=== PATIENT | male | born 2000 | race Caucasian/White ===

== ENCOUNTER 2022-09-11 17:14 | Emergency (ER) | payer OTHER, BC, SELFPAY ==
--- NOTE | ~2022-09-11 | XR_ITS ---
EXAMINATION: XR thoracic spine 3V DATE: 09/11/2022 18:12 INDICATION: Upper back pain TECHNIQUE: AP, lateral and lateral swimmer's views of the thoracic spine were obtained. COMPARISON: None. FINDINGS: No fracture, dislocation, or subluxation. The vertebral body heights, alignment, and interv ertebral disc spaces are normal. The paravertebral soft tissues are unremarkable. There are 10 degree s of thoracic dextrocurvature. IMPRESSION: 1. No acute osseous abnormality. Reviewed, dictated and finalized at location F.
--- NOTE | ~2022-09-11 | CT_ITS ---
EXAMINATION: CT brain wo con INDICATION: Headache COMPARISON: None TECHNIQUE: Standard unenhanced head CT. The dose-length product (DLP) was 605.33 mGy-cm. The mA was a djusted according to patient size. Iterative reconstruction technique was employed. FINDINGS: There is no intracranial hemorrhage, acute infarction, or abnormal mass lesion. The ventric les are normal. There is no abnormal mass effect or midline shift. The ojeda-white matter differentiat ion is normal. The basal cisterns are patent. The orbits are normal. The paranasal sinuses, mastoids and calvarium are normal. IMPRESSION: 1. No acute intracranial abnormality. Reviewed, dictated and finalized at location F.
--- NOTE | ~2022-09-11 | XR_ITS ---
EXAMINATION: XR chest 2V DATE: 09/11/2022 18:13 INDICATION: Chest pain TECHNIQUE: PA and lateral views of the chest are obtained. COMPARISON: 08/13/2018 FINDINGS: The lungs are free of acute opacities. No pleural effusion or pneumothorax. The cardiomedia stinal silhouette is normal. There are 10 degrees thoracic dextrocurvature. IMPRESSION: 1. No acute cardiopulmonary abnormality. Reviewed, dictated and finalized at location F.
--- NOTE | ~2022-09-11 | CT_ITS ---
EXAMINATION: CT cervical spine wo con DATE: 09/11/2022 17:52 INDICATION: Neck pain TECHNIQUE: Computed tomography (CT) of the cervical spine was performed without intravenous contrast. The dose-length product (DLP) was 396.33 mGy-cm. Automated exposure control and iterative reconstruc tion technique were employed. COMPARISON: None FINDINGS: No fracture, dislocation, or subluxation. The vertebral body heights, alignment, and interv ertebral disc spaces are normal. The paravertebral soft tissues are unremarkable. The odontoid proces s is intact. IMPRESSION: 1. No acute osseous abnormality. Reviewed, dictated and finalized at location F.
[2022-09-11 17:16] VITALS: BP 120/65; PULSE 73; RESP 16; TEMP 36.4; O2SAT 100
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
[2022-09-11] MEDS: IBUPROFEN 600 MG TABLET PO (17:39)
== END 2022-09-11 19:20 | disposition home or self-care (01) ==
PROVIDERS: Emergency Provider Emergency Medicine
DX: S16.1XXA Strain of muscle, fascia and tendon at neck level, initial encounter (principal); S29.9XXA Unspecified injury of thorax, initial encounter; V43.52XA Car driver injured in collision with other type car in traffic accident, initial encounter
CPT/HCPCS: 70450; 71046; 72072; 72125; 99284; A9270

== ENCOUNTER 2022-11-12 09:00 | Outpatient (RCR) | payer BC, SELFPAY ==
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
--- NOTE | 2022-10-22 11:54 | PCPTNOTE ---
Patient called & cancelled scheduled appointment this date. Confirms he will be at his next appointment.
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
== END 2022-11-12 12:53 | disposition home or self-care (01) ==
LOC: ANHGOSHPT 09:00
PROVIDERS: Visit Provider Clinical Nurse Specialist
DX: M54.2 Cervicalgia (principal); V89.2XXA Person injured in unspecified motor-vehicle accident, traffic, initial encounter
CPT/HCPCS: 97014; 97110; 97112; 97140; 97161; G0283

== ENCOUNTER 2023-02-17 11:00 | Outpatient (RCR) | payer BC, SELFPAY ==
--- NOTE | 2022-11-24 09:23 | OPREHPOC ---
Outpatient Therapy Plan of Care This is a Multidisciplinary Plan of Care that may contain components documented by all disciplines (PT, OT, and ST.) PT Problem 1 PT Problem #1 Knowledge Deficit PT Goal 1 Goal Pt to be IND with issued HEP Target Visit 4 PT Problem 2 PT Problem #2 Pain PT Goal 1 Goal Pt to report low back pain no greater than 3/10 in the last week. Target Visit 4 PT Goal 2 Goal Pt to report 75% improvement in overall symptoms. Target Visit 4 PT Problem 3 PT Problem #3 Impaired Range of Motion PT Goal 1 Goal Pt to improve lumbar ROM to 75% of normal Target Visit 4 PT Goal 2 Goal Pt to improve hamstring length to -30 deg farzad Target Visit 4 PT Problem 4 PT Problem #4 Impaired Strength PT Goal 1 Goal Pt to improve hip abduction stretch to 4+/5 Target Visit 4 PT Goal 2 Goal Pt to be able to lift and carry 30lb without an increase in symptoms.
--- NOTE | 2022-11-24 09:23 | PTOPEVAL1 ---
Assessment and note entered by Shayne Calderon, PT, DPT Evaluation Information Assessment Status Evaluation Diagnosis lower back pain, frazad hollis pain, farzad plantar fascitis Onset 4 years Subjective Information Pt reports a 4 year history of farzad foot and knee pain. He reports a new onset of low back pain, about 6 months. He did prior therapy for this without much relief. Pt states sitting, standing, or laying flat for an extended period of time all increase his back pain. He report he can stand for 1 hour prior to needing to sit down. He states at this time he is limited by his back and not his feet nor knees. Reported Pain Level Pain Score 3: Self Report Assessment PT Clinical Summary Savage presents to therapy today for his initial evaluation with a diagnosis of farzad knee pain, dorsalgia, and farzad plantar fascitis. Today he demonstrates decreased active spinal mobility in all planes, decreased passive hip ROM and decreased hip strength all likely playing a roll into his low back pain. He demonstrates decreased ankle dorsiflexion as well as a shortened plantar fascia. Skilled therapy services are indicated to improve mobility, improve strength, improve body mechanics, and to return to PLOF without limitations d/t pain. Plan of Care Interventions Electrical Stimulation,Gait Training,Hot Pack/Cold Pack,Manual Therapy,Neuro Re-education,Patient/ Caregiver Educati,Therapeutic Activities, Therapeutic Exercise PT Services Indicated Yes Treatment Frequency and 1x/wk for 4 wks Duration These treatments will address the objective and functional deficits as defined above. The patient will be advanced safely and appropriately in order for the patient to progress towards his/her prior level of function. Additional exercises will be introduced and as well as a comprehensive home exercise program upon discharge, if needed, ?to ensure carryover of functional gains achieved in the clinic. This treatment plan has been reviewed and agreement upon by the patient.
--- NOTE | 2022-12-02 14:14 | PCPTNOTE ---
On 12/02/22, the student Ladonna Aguilera, provided care and completed [facility] documentation on this patient. I have reviewed the student's documentation and agree with the findings.
--- NOTE | 2022-12-23 10:10 | PTOPPROG ---
Assessment and note entered by Shayne Calderon, PT, DPT Evaluation Information Assessment Status Progress Diagnosis lower back pain, farzad hollis pain, farzad plantar fascitis Onset 4 years Subjective Information Pt states overall he feels about the same as when he started therapy. He reports good compliance with his HEP. He states he gets a little bit of relief in the moment when completing therapy but does not see any improvement with day to day tasks . Assessment PT Clinical Summary Savage presents to therapy today for his progress report following 4 visits of skilled therapy with a diagnosis of farzad knee pain, dorsalgia, and farzad plantar fascitis. Today he demonstrates mild improvements in his hamstring length, no improvement in ankle motion, and minor improvements in passive hip ROM on the R. He was educated on shot inserts to assist with foot and ankle alignment in standing. Continuation of skilled therapy services are indicated to continue to progress towards therapy goals, to manage pain , and to return to PLOF without limitations. Plan of Care Interventions Electrical Stimulation,Gait Training,Hot Pack/Cold Pack,Manual Therapy,Neuro Re-education,Patient/ Caregiver Educati,Therapeutic Activities, Therapeutic Exercise PT Services Indicated Yes Treatment Frequency and 1x/wk for 4 wks Duration These treatments will address the objective and functional deficits as defined above. The patient will be advanced safely and appropriately in order for the patient to progress towards his/her prior level of function. Additional exercises will be introduced and as well as a comprehensive home exercise program upon discharge, if needed, ?to ensure carryover of functional gains achieved in the clinic. This treatment plan has been reviewed and agreement upon by the patient.
--- NOTE | 2023-01-07 09:52 | PCPTNOTE ---
Patient called to cancel but did not explain why.
--- NOTE | 2023-01-21 10:45 | PTOPPROG ---
Assessment and note entered by Shayne Calderon, PT, DPT Evaluation Information Assessment Status Progress Diagnosis lower back pain, farzad hollis pain, farzad plantar fascitis Onset 4 years Subjective Information Pt states things are about the same as last assessment. He states at times he has a little less heel pain. He states his back pain has remained unchanged. He reports good compliance with his HEP. Assessment PT Clinical Summary Savage presents to therapy today for his progress report following 7 visits of skilled therapy with a diagnosis of farzad knee pain, dorsalgia, and farzad plantar fascitis. He continues to report good compliance with his HEP. Today he demonstrates improved ankle ROM to nearing WNL, improved hip strength to grossly 4/5, and improve standing posture. He continues to have pain at rest in his low back and feet farzad. Continuation of skilled therapy services are indicated to continue to progress towards therapy goals, to manage pain, and to return to PLOF without limitations. Plan of Care Interventions Electrical Stimulation,Gait Training,Hot Pack/Cold Pack,Manual Therapy,Neuro Re-education,Patient/ Caregiver Educati,Therapeutic Activities, Therapeutic Exercise PT Services Indicated Yes Treatment Frequency and 1x/wk for 4 wks Duration These treatments will address the objective and functional deficits as defined above. The patient will be advanced safely and appropriately in order for the patient to progress towards his/her prior level of function. Additional exercises will be introduced and as well as a comprehensive home exercise program upon discharge, if needed, ?to ensure carryover of functional gains achieved in the clinic. This treatment plan has been reviewed and agreement upon by the patient.
--- NOTE | 2023-02-04 09:46 | PCPTNOTE ---
Patient reports he has to cancel due to conflicting appointments.
--- NOTE | 2023-02-17 11:55 | PTOPDC ---
Assessment and note entered by Shayne Calderon, PT, DPT Evaluation Information Assessment Status Discharge Diagnosis lower back pain, farzad hollis pain, farzad plantar fascitis Onset 4 years Subjective Information Pt states his back is more sore today than usually He states his back is pretty consistent and is usually a 5/10. He states his feet average a 4/10. He thinks he has made a little progress in therapy but states it is really slow, 15% overall improvement. Reported Pain Level Pain Score 4,7: Self Report Assessment PT Clinical Summary Savage presents to therapy today for his progress report following 10 visits of skilled therapy with a diagnosis of farzad knee pain, dorsalgia, and farzad plantar fascitis. He continues to report good compliance with his HEP but demonstrates minimal functional improvement. It was decided that he be discharged at this time with instructions to continue his HEP.
== END 2023-02-22 23:59 | disposition home or self-care (01) ==
LOC: ANHGOSHPT 11:00
PROVIDERS: PCP Internal Medicine; Visit Provider Clinical Nurse Specialist
DX: M54.9 Dorsalgia, unspecified (principal); M72.2 Plantar fascial fibromatosis; M25.569 Pain in unspecified knee
CPT/HCPCS: 97110; 97112; 97116; 97140; 97161; 97530

== ENCOUNTER → 2023-04-16 11:06 | Outpatient (CLI) | payer BC, SELFPAY ==
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
== END ==
PROVIDERS: PCP Clinical Nurse Specialist; Visit Provider Clinical Nurse Specialist
DX: M54.50 Low back pain, unspecified (principal)
CPT/HCPCS: 72100

== ENCOUNTER → 2023-04-27 15:39 | Outpatient (CLI) | payer BC, SELFPAY ==
--- NOTE | ~2023-04-27 | MR_ITS ---
EXAMINATION: MR lumbar spine wo con DATE: 04/27/2023 16:09 INDICATION: Low back pain, unspecified. TECHNIQUE: Magnetic resonance imaging (MRI) of the lumbar spine was performed without intravenous con trast. Sequences included sagittal T2-weighted FSE, sagittal T2-weighted FS FSE, sagittal T1-weighted FSE, and axial T2-weighted FSE. COMPARISON: Lumbar spine radiograph 04/16/2023 FINDINGS: Bone alignment is normal. There is mild chronic anterior wedging of T12 and L1 vertebral yanna dies, likely physiologic. Intervertebral disc heights are normal. The distal spinal cord signal inten sity is normal. The conus medullaris is at T12. The following disc levels are specifically discussed: L1-L2: The disc does not extend beyond the endplate margin. There is mild left facet joint osteoarthr itis. There is no neural foraminal stenosis. There is no central canal stenosis. L2-L3: The disc does not extend beyond the endplate margin. There is mild bilateral facet joint osteo arthritis. There is no neural foraminal stenosis. There is no central canal stenosis. L3-L4: The disc does not extend beyond the endplate margin. There is moderate bilateral facet joint o steoarthritis. There is no neural foraminal stenosis. There is no central canal stenosis. L4-L5: The disc is mildly bulging. There is moderate bilateral facet joint osteoarthritis. There is m ild bilateral neural foraminal stenosis. There is no central canal stenosis. L5-S1: The disc does not extend beyond the endplate margin. There is mild bilateral facet joint osteo arthritis. There is no neural foraminal stenosis. There is no central canal stenosis. IMPRESSION: 1. Mild lumbar spondylosis. Reviewed, dictated and finalized at location A. TRY SCIENTIST IMPRESSION: 1. Mild lumbar spondylosis.
== END ==
PROVIDERS: PCP Internal Medicine; Visit Provider Nurse Practitioner
DX: M47.896 Other spondylosis, lumbar region (principal)
CPT/HCPCS: 72148

== ENCOUNTER 2024-12-09 08:59 | Outpatient (CLI) | payer BC, SELFPAY ==
[2024-12-09 18:06] LABS: Basophils Absolute Auto 0.1 K/mm3 (0.0-0.1); Basophils Percent Auto 0.6 % (0.2-1.2); Eosinophils Absolute Auto 0.2 K/mm3 (0-0.3); Eosinophils Percent Auto 1.2 % (0-4.4); Hematocrit 47.8 % (42.0-52.0); Hemoglobin 15.1 g/dL (14.0-18.0); Immature Granulocyte Absolute 0.04 K/mm3 (0.00-0.031); Immature Granulocyte Percent A 0.3 % (0-0.5); Lymphocytes Absolute Auto 2.68 K/mm3 (0.9-3.2); Lymphocytes Percent Auto 21.6 % (18.3-44.2); Mean Corpuscular HGB Conc 31.6 g/dl (32-36); Mean Corpuscular Hemoglobin 29.1 pg (26-34); Mean Corpuscular Volume 92.1 fl (80-100); Monocytes Absolute Auto 1.1 K/mm3 (0.1-0.6); Monocytes Percent Auto 8.9 % (2.6-8.5); Neutrophils Absolute Auto 8.4 K/mm3 (1.3-6.7); Neutrophils Percent Auto 67.4 % (45.5-73.1); Platelet Count Result 348 k/mm3 (150-375); Red Blood Count 5.19 M/mm3 (4.6-6.20); Red Cell Distribution Width 12.6 % (11.5-14.5); White Blood Count 12.4 K/mm3 (4.5-10.0)
[2024-12-09 18:24] LABS: Alanine Aminotransferase 47 U/L (6-50); Albumin Level 4.4 g/dL (3.5-5.1); Alkaline Phosphatase 53 U/L (38-126); Anion Gap 11 mmol/L (4-12); Aspartate Amino Transferase 44 U/L (17-59); Bilirubin,Total 0.7 mg/dL (0.2-1.3); Blood Urea Nitrogen 14 mg/dL (9-20); Calcium 9.4 mg/dL (8.4-10.2); Carbon Dioxide 27 mmol/L (22-30); Chloride 101 mmol/L (98-107); Estimated Glomerular Filt Rate > 60; Glucose 79 mg/dL (65-110); Potassium 4.5 mmol/L (3.4-5.0); Sodium 139 mmol/L (137-145); Total Protein 7.3 g/dL (6.3-8.2)
== END 2024-12-09 09:00 | disposition home or self-care (01) ==
LOC: ANHGOSHLAB 09:00
PROVIDERS: PCP Clinical Nurse Specialist; Visit Provider Clinical Nurse Specialist
DX: E55.9 Vitamin D deficiency, unspecified (principal); F41.9 Anxiety disorder, unspecified; Z13.228 Encounter for screening for other metabolic disorders
CPT/HCPCS: 36415; 80053; 82306; 84443; 85025

== ENCOUNTER 2024-12-09 09:07 | Outpatient (CLI) | payer BC, SELFPAY ==
--- NOTE | ~2024-12-09 | XR_ITS ---
EXAM/ PROCEDURE: [id number] - 12/09/2024 9:09 CDT HISTORY: 24 years old Male with M25.561 - Pain in right knee COMPARISON: None available TECHNIQUE: Two view(s) FINDINGS/ IMPRESSION: There are no fractures or dislocations.Joint spaces are within normal limits. Reviewed, dictated and finalized at location A.
--- NOTE | ~2024-12-09 | XR_ITS ---
EXAM/ PROCEDURE: [id number] - 12/09/2024 9:09 CDT HISTORY: 24 years old Male with Chronic pain bilat knees COMPARISON: None available TECHNIQUE: Two view(s) FINDINGS/ IMPRESSION: There are no fractures or dislocations.Joint spaces are within normal limits. Reviewed, dictated and finalized at location A.
== END 2024-12-09 09:08 | disposition home or self-care (01) ==
PROVIDERS: PCP Clinical Nurse Specialist; Visit Provider Clinical Nurse Specialist
DX: M25.561 Pain in right knee (principal); M25.562 Pain in left knee; G89.29 Other chronic pain
CPT/HCPCS: 73560

== ENCOUNTER 2025-01-23 12:30 | Outpatient (RCR) | payer BC, SELFPAY ==
--- NOTE | 2024-12-09 16:01 | OPREHPOC ---
Outpatient Therapy Plan of Care This is a Multidisciplinary Plan of Care that may contain components documented by all disciplines (PT, OT, and ST.) PT Problem 1 PT Problem #1 Knowledge Deficit PT Goal 1 Goal / Goal Update 1. Patient to demonstrate independence with HEP for improved self-reliance of symptom management. Target Visit 8 PT Problem 2 PT Problem #2 Pain PT Goal 1 Goal / Goal Update 1. Patient to decrease subjective reports of pain to <2/10 for improved activity tolerance required for job duties. 2. Patient to report an improvement in radiating symptoms of tingling in ERICK LE by 50% to allow for prolonged sitting / standing without increasing symptoms. Target Visit 8 PT Problem 3 PT Problem #3 Impaired Flexibility PT Goal 1 Goal / Goal Update 1. Patient will demonstrate an increase in hamstring flexibility, improving passive knee extension in the 90/90 position from to within -20 ? of full extension to allow for improved sitting posture and reduced strain during gait Target Visit 8 PT Problem 4 PT Problem #4 Impaired Strength PT Goal 1 Goal / Goal Update 1. Patient will demonstrate improved strength of the bilateral hip abductors and extensors to 4+/5 on manual muscle testing in order to improve gait stability and stair negotiation. 2. Patient to demonstrate the ability to slowly lower bilateral LE?s from 90 deg hip flexion to supine position for improved lower abdominal control. Target Visit 8
--- NOTE | 2024-12-09 16:01 | PTOPEVAL1 ---
Assessment and note entered by Scotty Mitchell PT Evaluation Information Assessment Status Evaluation Diagnosis Low back pain and Felix knee pain/instability ICD-10 Condition Codes (PT) Pain in low back M54.50,Radiculopathy, lumbar region M54.16,Pain in right knee M25.561,Pain in left knee M25.562 Onset Chronic Subjective Information Pt states he has been dealing with chronic pain in his low back and Felix knee pain for the last few years. 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 Pt notes he has intermittent numbness and tingling in both legs that is worse when seated. Pt states back pain is his primary concern but does have bouts of knee instability when going up stairs. Pt reports he was previously seen by physical therapy for back pain with moderate success. Reported Pain Level Pain Score 3: Self Report Assessment PT Clinical Summary Patient presents to physical therapy with a primary issue of chronic low back pain with intermittent tingling in Felix LE pain. Pt reports bouts of knee instability but is primarily limited by back pain. Upon assessment Patient demonstrates hip and core weakness, pain, decreased mobility, and decreased flexibility with neural tension that limit their ability to perform activities of daily living and functional movements. Patient will benefit from skilled physical therapy to address the above listed deficits and return to prior level of function. Home exercise program instructed and written handout provided, exercises tolerated well with no adverse effects to note post-session. Patient was educated on importance of adherence to home exercise program. Patient was also educated on anatomy, prognosis, home modalities, and plan of care Plan of Care Interventions Electrical Stimulation,Manual Therapy,Mechanical Traction,Neuro Re-education,Therapeutic Activities ,Therapeutic Exercise,Other PT Services Indicated Yes Treatment Frequency and 1-2 week for 8 visits Duration These treatments will address the objective and functional deficits as defined above. The patient will be advanced safely and appropriately in order for the patient to progress towards his/her prior level of function. Additional exercises will be introduced and as well as a comprehensive home exercise program upon discharge, if needed, ?to ensure carryover of functional gains achieved in the clinic. This treatment plan has been reviewed and agreement upon by the patient.
--- NOTE | 2024-12-28 08:22 | PCPTNOTE ---
Patient left a voicemail to cancel with front office staff.
--- NOTE | 2025-01-23 13:26 | PTOPDC ---
Assessment and note entered by Scotty Mitchell PT Evaluation Information Assessment Status Evaluation Diagnosis Low back pain and Felix knee pain/instability ICD-10 Condition Codes (PT) Pain in low back M54.50,Radiculopathy, lumbar region M54.16,Pain in right knee M25.561,Pain in left knee M25.562 Onset Chronic Subjective Information Pt states he feels a little better since starting therapy. He notes his core feels stronger and he only gets tingling in his legs occasionally and mostly when he is driving. Pt states his low back still aches with prolonged standing and his L knee is hurting more than usual today. Pt reports his company is currently on strike so he has concern with his insurance coverage and would like to discharge for therapy at this time. Reported Pain Level Pain Score 6,0: Self Report Assessment PT Clinical Summary Patient's low back and knee pain has shown some improvement overall as evidenced by advancements in symptoms, mobility, strength, and overall functional use of the extremity. However, some limitations are still present. Patient would benefit from continued skilled physical therapy but is currently having insurance changes and requested to be discharged at this time. Patient to contact physical therapist or primary care provider if questions or concerns arise. Plan of Care PT Services Indicated No
== END 2025-01-23 14:03 | disposition home or self-care (01) ==
LOC: ANHGOSHPT 12:30
PROVIDERS: PCP Clinical Nurse Specialist; Visit Provider Clinical Nurse Specialist
DX: M54.16 Radiculopathy, lumbar region (principal); M25.561 Pain in right knee; M25.562 Pain in left knee; G89.29 Other chronic pain
CPT/HCPCS: 97110; 97112; 97140; 97161; 97530